=== PATIENT | male | born 1965 | race Caucasian/White ===

== ENCOUNTER 2018-06-30 13:32 | Outpatient (CLI) | payer MEDICARE, MEDICAID ==
--- NOTE | 2018-07-02 06:01 | XRAY Report ---
Reason: R wrist pain Procedure Date: 06/30/2018 Accession Number: [id number] / [id number] Procedure: XRN - Wrist 3 View RT CPT Code: FULL RESULT: EXAM: RIGHT WRIST RADIOGRAPHY EXAM DATE: 06/30/2018 02:18 PM. CLINICAL HISTORY: R wrist pain. COMPARISON: None. TECHNIQUE: 3 views. FINDINGS: Bones: Normal. No fractures or bone lesions. Joints: Normal. No subluxations. Soft Tissues: Normal. No soft tissue swelling. IMPRESSION: Normal wrist radiography. [facility]
== END 2018-06-30 13:33 | disposition home or self-care (01) ==
LOC: DI.N 13:32
DX: M25.531 Pain in right wrist (principal)

== ENCOUNTER 2020-02-11 08:00 | Outpatient (CLI) | payer MEDICARE ==
[2020-02-11 12:09] LABS: BASOPHILS # (AUTO) 0.1 10^3/uL (0.0-0.1); BASOPHILS % (AUTO) 1.1 %; EOSINOPHILS # (AUTO) 0.3 10^3/uL (0.0-0.7); HGB - HEMOGLOBIN 15.6 g/dL (14.0-18.0); LYMPHOCYTES # (AUTO) 2.6 10^3/uL (1.5-3.5); LYMPHOCYTES % (AUTO) 37.4 %; MEAN CORPUSCULAR HEMOGLOBIN 29.7 pg (27.0-31.0); MEAN CORPUSCULAR HGB CONC 33.5 g/dL (32.0-36.0); MEAN CORPUSCULAR VOLUME 88.8 fL (80.0-94.0); MEAN PLATELET VOLUME 9.9 fL (7.4-11.4); MONOCYTES # (AUTO) 0.5 10^3/uL (0.0-1.0); MONOCYTES % (AUTO) 6.4 %; NEUTROPHILS # (AUTO) 3.6 10^3/uL (1.5-6.6); NEUTROPHILS % (AUTO) 50.8 %; PLT - PLATELET COUNT 279 10^3/uL (130-450); RED BLOOD COUNT 5.25 10^6/uL (4.70-6.10); RED CELL DISTRIBUTION WIDTH 11.9 % (12.0-15.0)
[2020-02-11 12:34] LABS: ALBUMIN 4.3 g/dL (3.2-5.5); ALBUMIN/GLOBULIN RATIO 1.4 (1.0-2.2); ALKALINE PHOSPHATASE 60 IU/L (42-121); ALT ALANINE AMINOTRANSFERASE 34 IU/L (10-60); AST ASPARTATE AMINOTRANSFERASE 28 IU/L (10-42); BILIRUBIN,TOTAL 0.6 mg/dL (0.2-1.0); BUN - BLOOD UREA NITROGEN 20 mg/dL (6-20); CALCIUM 9.4 mg/dL (8.5-10.3); CARBON DIOXIDE - CO2 25 mmol/L (21-32); CHLORIDE 107 mmol/L (101-111); CHOL/HDL RATIO 3.4 (<5.0); CHOLESTEROL 158 mg/dL; CREATININE 0.8 mg/dL (0.6-1.2); GLUCOSE 105 mg/dL (70-100); HDL CHOLESTEROL 47 mg/dL; LDL CHOLESTEROL,CALCULATED 87 mg/dL; LDL/HDL RATIO 1.9 (<3.6); SODIUM 138 mmol/L (135-145); TOTAL PROTEIN 7.4 g/dL (6.7-8.2); VLDL CHOLESTEROL 24 mg/dL
== END 2020-02-11 23:59 | disposition home or self-care (01) ==
LOC: LAB.WCP 08:00
PROVIDERS: ATTEND Nurse Practitioner Family
DX: I10 Essential (primary) hypertension (principal); I63.9 Cerebral infarction, unspecified
CPT/HCPCS: 36415; 80053; 80061; 83721; 84443; 85025

== ENCOUNTER 2022-08-30 12:53 | Outpatient (CLI) | payer MEDICARE, MEDICAID ==
[2022-08-30 17:51] LABS: BASOPHILS # (AUTO) 0.1 10^3/uL (0.0-0.1); BASOPHILS % (AUTO) 0.8 %; EOSINOPHILS # (AUTO) 0.2 10^3/uL (0.0-0.7); EOSINOPHILS % (AUTO) 2.1 %; HCT - HEMATOCRIT 47.9 % (42.0-52.0); HGB - HEMOGLOBIN 15.3 g/dL (14.0-18.0); LYMPHOCYTES # (AUTO) 2.4 10^3/uL (1.5-3.5); LYMPHOCYTES % (AUTO) 31.4 %; MEAN CORPUSCULAR HEMOGLOBIN 28.8 pg (27.0-31.0); MEAN CORPUSCULAR HGB CONC 31.9 g/dL (32.0-36.0); MEAN CORPUSCULAR VOLUME 90.2 fL (80.0-94.0); MEAN PLATELET VOLUME 9.8 fL (7.4-11.4); MONOCYTES # (AUTO) 0.5 10^3/uL (0.0-1.0); MONOCYTES % (AUTO) 5.9 %; NEUTROPHILS # (AUTO) 4.6 10^3/uL (1.5-6.6); NEUTROPHILS % (AUTO) 59.5 %; PLT - PLATELET COUNT 274 10^3/uL (130-450); RED BLOOD COUNT 5.31 10^6/uL (4.70-6.10); RED CELL DISTRIBUTION WIDTH 12.1 % (12.0-15.0); WHITE BLOOD COUNT 7.7 x10^3/uL (4.8-10.8)
[2022-08-30 18:09] LABS: ALBUMIN 4.2 g/dL (3.2-5.5); ALBUMIN/GLOBULIN RATIO 1.4 (1.0-2.2); ALKALINE PHOSPHATASE 50 IU/L (42-121); ALT ALANINE AMINOTRANSFERASE 24 IU/L (10-60); AST ASPARTATE AMINOTRANSFERASE 27 IU/L (10-42); BILIRUBIN,TOTAL 0.5 mg/dL (0.2-1.0); BUN - BLOOD UREA NITROGEN 15 mg/dL (6-20); CALCIUM 9.3 mg/dL (8.5-10.3); CARBON DIOXIDE - CO2 31 mmol/L (21-32); CHLORIDE 106 mmol/L (101-111); CHOL/HDL RATIO 3.9 (<5.0); CHOLESTEROL 190 mg/dL; CREATININE 0.8 mg/dL (0.6-1.2); GFR - MDRD 99 (>89); GLUCOSE 109 mg/dL (70-100); HDL CHOLESTEROL 49 mg/dL; LDL CHOLESTEROL,CALCULATED 112 mg/dL; LDL/HDL RATIO 2.3 (<3.6); POTASSIUM 4.3 mmol/L (3.5-5.0); SODIUM 142 mmol/L (135-145); TOTAL PROTEIN 7.3 g/dL (6.7-8.2); TRIGLYCERIDES 147 mg/dL; VLDL CHOLESTEROL 29 mg/dL
[2022-08-30 18:15] LABS: THYROID STIMULATING HORMONE 2.16 uIU/mL (0.34-5.60)
== END 2022-08-30 12:54 | disposition home or self-care (01) ==
LOC: LAB.N 12:53
PROVIDERS: ATTEND Family Medicine
DX: I10 Essential (primary) hypertension (principal); G25.81 Restless legs syndrome; I69.351 Hemiplegia and hemiparesis following cerebral infarction affecting right dominant side; H54.7 Unspecified visual loss
CPT/HCPCS: 36415; 80053; 80061; 83721; 84443; 85025

== ENCOUNTER 2024-03-08 07:53 | Day surgery (SDC) | payer MEDICARE, MEDICAID ==
[2024-03-08] MEDS: LACTATED RINGERS 1,000 ML IV ONE (07:58)
[2024-03-08] MEDS: PROPARACAINE 0.5% OPHTH DROPS 15 ML ONE (08:00)
[2024-03-08] MEDS: KETOROLAC TROMETHAMINE 0.5% OPHTH DROPS 5 ML ONE (08:00)
[2024-03-08] MEDS: CYCLOPENTOLATE 1% OPHTH DROPS 2 ML ONE (08:10)
[2024-03-08] MEDS: PHENYLEPHRINE 2.5% OPHTH 2 ML DROPS ONE (08:10)
--- NOTE | 2024-03-08 08:44 | ANESTHESIA ---
Pre-Anesthesia VS, & Labs - Diagnosis right senile combined cataract - Procedure right eye cataract extraction with IOL implant Vital Signs: Temp Pulse Resp BP Pulse Ox O2 Flow Rate 36.8 C 64 24 135/85 H 96 03/08/24 08:10 03/08/24 08:10 03/08/24 08:10 03/08/24 08:10 03/08/24 08:10 Height: 5 ft 8 in Weight (kg): 72.4 kg Body Mass Index: 24.3 BMI Classification: Normal - NPO >8 hours Home Medications and Allergies Home Medications: Ambulatory Orders Loratadine [Claritin] 10 mg PO DAILY PRN 03/08/24 Loratadine [Claritin] 10 mg PO DAILY PRN 03/08/24 Allergies/Adverse Reactions: Allergies Allergy/AdvReac Type Severity Reaction Status Date / Time No Known Drug Allergies Allergy Verified 03/08/24 07:46 Anes History & Medical History - Anesthetic History Anesthesia Complications: reports: No previous complications - Medical History Cardiovascular: reports: Hypertension Pulmonary: reports: None Gastrointestinal: reports: None Urinary: reports: None Neuro: reports: CVA (residual visual and cognitive impairments.) Musculoskeletal: reports: None Endocrine/Autoimmune: reports: None Skin: reports: None Smoking Status: Never smoker Psychosocial: reports: No issues indicated History of Cancer?: No - Surgical History Eyes Ears Nose Throat (EENT): reports: Other (eye surgery) Exam General: Alert, Oriented x3, Cooperative, No acute distress Dental: WNL Mouth Openin Fingerbreadth Neck Mobility: Normal Mallampati classification: I Thyromental Distance: 4-6 cm Mental/Cognitive Status: Alert/Oriented X3, Normal for patient Plan Anesthesia Type: MAC Consent for Procedure(s) Verified and Reviewed: Yes Code Status: Attempt Resuscitation ASA classification: 3-Severe systemic disease Is this case an emergency?: No
[2024-03-08] MEDS ORDERED: MIDAZOLAM 2 MG/2 ML VIAL ONE (08:49)
[2024-03-08] MEDS ORDERED: TRIAMCIN/MOXIFLOX OPHTHALMIC 0.6 ML VIAL IO ONE (09:01)
[2024-03-08] MEDS ORDERED: EPINEPHrine 1 MG/ML AMP ONE (09:01)
[2024-03-08] MEDS ORDERED: BRIMONIDINE 0.2% OPHTH DROPS 5 ML ONE (09:01)
[2024-03-08] MEDS ORDERED: TIMOLOL 0.5% OPHTH DROPS ONE (09:01)
[2024-03-08] MEDS ORDERED: BSS/LIDOCAINE/EPINEPHRINE 1 ML VIAL ONE (09:01)
[2024-03-08] MEDS: TIMOLOL 0.5% OPHTH DROPS OPTH ONE (09:06)
[2024-03-08] MEDS: EPINEPHrine 1 MG/ML AMP IR ONE (09:06)
[2024-03-08] MEDS: BRIMONIDINE 0.2% OPHTH DROPS 5 ML OPTH ONE (09:06)
[2024-03-08] MEDS: PROPARACAINE 0.5% OPHTH DROPS 15 ML EACHEYE ONE (09:07)
[2024-03-08] MEDS: VANCOMYCIN OPHTH (TOPICAL) 10 MG/ML SYRINGE TOP ONE (09:07)
[2024-03-08] MEDS: TRIAMCIN/MOXIFLOX OPHTHALMIC 0.6 ML VIAL IO ONE (09:07)
[2024-03-08] MEDS: BSS/LIDOCAINE/EPINEPHRINE 1 ML SYRINGE IO ONE (09:07)
[2024-03-08] MEDS: LACTATED RINGERS 800 ML IV ONE (09:40)
[2024-03-08 09:50] VITALS: O2SAT 94
--- NOTE | 2024-03-08 09:56 | OPERATIVE REPORT ---
Operative Report - Other Other Information/Narrative: Date of Surgery: 03/08/24 Preop Dx: Visually significant cataract right eye. This was the first cataract surgery. Postop Dx: Same Procedure: Phacoemulsification with posterior chamber intraocular lens implant right eye Surgeon: Dr. Joshua Gr Anesthesia: Monitored anesthesia care Complications: None Operative Indications: This is a 58-year-old M with progressive vision loss in the right eye due to 1-2+ nuclear sclerotic and 2+ posterior subcapsular cataract. Best corrected visual acuity was 20/50 with glare to light perception vision in the right eye. Indications for surgery were: - Overall decrease in vision - Difficulty seeing words on a computer screen - Difficulty reading - Difficulty seeing words, closed captions, or game scores on TV - Difficulty seeing street signs - Difficulty with glare or bright lights in any situation - Difficulty tracking a golf ball - Decreased acuity with firearms The patient was consented at length concerning the risks and benefits of cataract surgery after which the patient expressed a desire to proceed with surgery. Operative Procedure: The patient was taken into OR#3 and placed under monitored anesthesia care. A surgical time-out was conducted confirming correct patient, correct procedure, and correct surgical site. The patient was given topical anesthesia and then prepped and draped in the usual sterile fashion. The eye was entered at the 6 and 3 oclock positions. Intracameral Shugarcaine was injected into the anterior chamber followed by a dispersive viscoelastic. A continuous-tear curvilinear capsulorhexis was performed. The nucleus was hydrodissected and phacoemulsified. The cortex was evacuated using automated infusion and aspiration. A cohesive viscoelastic was injected into the capsular bag and a 22.5 diopter intraocular lens was inserted into the bag. Infusion and aspiration were used to evacuate the viscoelastic materials from the eye. The wounds were hydrated and the eye inflated to physiologic pressure using balanced salt solution. Approximately 0.25ml of a mixture of triamcinolone and moxifloxacin was injected trans-sclerally into the vitreous in the inferotemporal quadrant using a 30 gauge cannula. An additional 0.25ml of a mixture of triamcinolone and moxifloxacin was injected subconjunctivally in the superior quadrant for infection and inflammation prophylaxis. Wound integrity was checked with Weck-Chichi sponges. The patient was taken from the operating room in good condition and given post-op instructions.
[2024-03-08 10:02] VITALS: BP 134/82
--- NOTE | 2024-03-08 10:49 | ANESTHESIA POST OP EVALUATION ---
Anesthesia Post Eval - Post Anesthesia Eval Vitals: Last Vital Signs Temp 36.3 C L 03/08/24 09:50 Pulse 68 03/08/24 09:50 Resp 16 03/08/24 09:50 BP 134/82 H 03/08/24 09:50 Pulse Ox 94 03/08/24 09:50 O2 Flow Rate CV Function Including HR & BP: Stable Pain Control: Satisfactory Nausea & Vomiting: Negative Mental Status: Baseline Respiratory Status: Airway Patent Hydration Status: Satisfactory Anesthesia Complications: None
== END 2024-03-08 07:54 | disposition home or self-care (01) ==
LOC: SDS 07:53
PROVIDERS: ATTEND Ophthalmology
DX: H25.811 Combined forms of age-related cataract, right eye (principal); I69.919 Unspecified symptoms and signs involving cognitive functions following unspecified cerebrovascular disease; I69.998 Other sequelae following unspecified cerebrovascular disease; H53.9 Unspecified visual disturbance; I10 Essential (primary) hypertension
CPT/HCPCS: 66984; A9270; J3490; J7120